=== PATIENT | male | born 2000 | race Caucasian/White ===

== ENCOUNTER 2023-03-20 10:06 | Outpatient (CLI) | payer BC, SELFPAY ==
--- NOTE | 2023-03-20 10:15 | MR_ITS ---
[address] [address] Phone:?[phone] Fax:?[phone] Referring Physician Information: Aldair Barros M.D. [address] [facility] [address] Phone:?[phone] Fax:?[phone] Patient:Stephy Dhaliwal D.O.B:?2000 Sex:?Male Phone:?[phone] [facility] MRN:?[id number] Exam Date:?03/20/2023 EXAM: MRI OF THE LEFT ANKLE AND HINDFOOT CLINICAL INFORMATION: The patient is a 22-year-old with left ankle and hindfoot pain. Evaluate for impingement. PRIOR SURGERY: The patient has a history of prior surgery to the region. COMPARISON STUDIES: Comparison is made to the prior CT examination dated 07/05/2022. TECHNICAL INFORMATION: Images were performed on a high-field, 1.5 Radha MR scanner. Axial proton-density and T2 imaging of the left ankle and hindfoot was performed in addition to sagittal proton-density, T2, and STIR imaging. Coronal proton-density and T2 imaging was also performed. FINDINGS: Osseous structures: Fat-suppressed imaging of the distal tibia and distal fibula shows no evidence for fracture or acute bony injury. The patient is status post surgical fixation of the medial malleolar region. No definite evidence for fracture nonunion in this region can be seen. Postsurgical changes are also present involving the talus. No definite evidence for acute or ununited fracture of the talus can be seen. There is marrow edema within the calcaneus along the posterior subtalar facet, in keeping with chondral loss described below. No evidence for well- defined fracture of the calcaneus can be seen. No evidence for acute bony abnormality of the midfoot structures can be seen. There are no abnormalities in midfoot alignment. Os trigonum: No os trigonum is identified. No definite MR signs of posterior impingement are seen. Tarsal coalition: No calcaneonavicular, talocalcaneal or cubonavicular coalition is present. Tibiotalar joint: Effusion: Mild to moderate. Ganglion cyst: None. Osteochondral surfaces: No definite chondral or osteochondral injury can be seen along the articular surfaces of the talar dome or tibial plafond. Loose bodies: None. Subtalar joint: Effusion: Mild to moderate. Articular cartilage: Full-thickness and near full-thickness chondral loss can be seen along the central and posterior aspects of the posterior subtalar facet on sagittal series 6 image 17 and on coronal series 8 image 27. Underlying reactive bony changes within the calcaneus are present. Tarsal joints: Talonavicular: Within normal limits. Calcaneocuboid: Within normal limits. Naviculocuneiform: Within normal limits. Ligamentous structures: Syndesmotic Ligaments: Chronic appearing thickening of the anterior tibiofibular ligament can be seen, in keeping with residual changes of a prior incomplete sprain. No evidence for disruption is identified. No definite widening of the syndesmosis can be seen. Lateral Ligaments: Thickening and irregularity of the anterior talofibular, calcaneofibular, and posterior talofibular ligaments can be seen, in keeping with a prior inversion rain. No impinging mass within the lateral gutter is present. Medial Ligaments: A moderate incomplete deltoid sprain can be seen with thickening of the deltoid fibers on coronal series 8 image 22. No evidence for transverse disruption is identified. Spring Ligaments: Intact. Sinus Tarsi: Intact cervical and interosseous ligaments. Flexor tendons: Posterior tibial: Mild to moderate tendinosis of the distal posterior tibialis tendon can be seen. There is no evidence for well-defined tearing. No definite tenosynovitis is identified. Flexor digitorum longus: Normal. Flexor hallucis longus: Normal, without convincing pathologic tenosynovitis. Peroneus longus and brevis: Tendinosis, flattening, and splitting of the peroneus brevis can be seen along the posterior and inferior margins of the lateral malleolus with mild tendinosis of the peroneus longus. Mild tenosynovitis is noted. There is no evidence for peroneal rupture or dislocation. Extensor tendons: Tibialis anterior: Normal, without tendinopathy, tenosynovitis or tear. Extensor hallucis longus: Normal. Extensor digitorum longus: Normal. Achilles tendon: No tendinopathy or tear. No retrocalcaneal bursitis. Plantar aponeurosis: No evidence for plantar fasciitis or plantar fascia tearing. Neurovascular structures: No definite neurovascular abnormalities are seen. The tarsal tunnel is within normal limits. CONCLUSION: 1. No acute bony injuries about the ankle, hindfoot, or midfoot can be seen. The patient is status post surgical fixation of the medial malleolus and posterior talus. No definite evidence for nonunion can be seen on the basis of this examination. 2. 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 3. Chronic appearing sprain injuries of the lateral ligamentous complex and deltoid complex. 4. Tendinosis, flattening, and splitting of the peroneus brevis with additional mild tendinosis of the peroneus longus. 5. Mild to moderate distal posterior tibialis tendinosis. 6. Effusions of the tibiotalar and subtalar joints. AEC Electronically signed on 03/21/2023 12:49:00 PM by Cheo Acuna M.D.
== END 2023-03-20 10:07 | disposition home or self-care (01) ==
LOC: MRI 10:11
PROVIDERS: Visit Provider Family Medicine
DX: M25.872 Other specified joint disorders, left ankle and foot (principal); M94.272 Chondromalacia, left ankle and joints of left foot; S93.422A Sprain of deltoid ligament of left ankle, initial encounter; M25.472 Effusion, left ankle
CPT/HCPCS: 73721